=== PATIENT | male | born 1980 | race Two or more races ===

== ENCOUNTER 2022-09-04 13:48 | Emergency (ER) | payer MEDICAID, OTHER ==
[~2022-09-04] VITALS: Ht 165.1 cm; Wt 81.3 kg
[2022-09-04 15:13] VITALS: BP 125/82
[2022-09-04] MEDS ORDERED: LIDOCAINE 1% HCL (LOCAL ANESTH.) INJ 20ML MDV IJ ONE (15:15)
[2022-09-04] MEDS ORDERED: TETANUS-DIPTH-ACEL PERTUSSIS 0.5ML SYR Tdap IM ONE (16:30)
[2022-09-04] MEDS ORDERED: CEPH-510 PO (17:15)
== END 2022-09-04 16:46 | disposition home or self-care (01) ==
LOC: ER 13:48
DX: S61.012A Laceration without foreign body of left thumb without damage to nail, initial encounter (principal); W45.8XXA Other foreign body or object entering through skin, initial encounter; Y93.89 Activity, other specified; Y92.89 Other specified places as the place of occurrence of the external cause; Y99.8 Other external cause status
CPT/HCPCS: 12002; 90471; 90715; 99283; J2001